=== PATIENT | female | born 1985 | race Caucasian/White ===

== ENCOUNTER → 2017-10-05 | Outpatient (CLI) | payer SELFPAY ==
--- NOTE | 2017-10-05 14:42 | RADIOLOGY REPORT (SQ) ---
EXAM DESCRIPTION: U/S [id number] TRNABD 1GES W/ODOP COMPLETED DATE/TIME: 10/05/2017 1:15 pm REASON FOR STUDY: ENCOUNTER FOR SUPERVISION OF OTHER NORMAL , FIRST TRIMESTER Z34.81 ENCOU NTER FOR SUPRVSN OF NORMAL , FIRST TRIM COMPARISON: No previous this TECHNIQUE: Transabdominal static and realtime grayscale images acquired of the pelvis. Additional se lected spectral and color Doppler images recorded. All images stored on PACs. bHCG: None available LIMITATIONS: None. FINDINGS: FETUS: Living intrauterine . EGA: 11 weeks 0 days COLUMBA: 04/26/2018 FHR: 173 beats per minute. SUBCHORIONIC BLEED: Yes SIZE OF BLEED: 1.5 x 0.8 cm in size UTERUS: No masses. No anomalies. Uterus is 10.3 x 8.6 x 7.7 cm in size CERVICAL LENGTH: 2.5 cm. Closed. RIGHT ADNEXA: Normal ovary with normal vascular flow. Right ovary 2.1 x 1.7 x 1.4 cm No adnexal free fluid. No adnexal masses. LEFT ADNEXA: Normal ovary with normal vascular flow. Left ovary 1.8 x 1.5 x 1.5 cm No adnexal free fluid. No adnexal masses. FREE FLUID: None. OTHER: No other significant finding. IMPRESSION: LIVING INTRAUTERINE . EGA 11 weeks 0 days. Small subchorionic hemorrhage Trimester of : First - 0 to 13 weeks. TECHNICAL DOCUMENTATION: JOB ID: [id number] [employer]- All Rights Reserved
== END ==
LOC: RAD 12:45
PROVIDERS: ATTEND Nurse Practitioner Women's Health
DX: Z34.81 Encounter for supervision of other normal pregnancy, first trimester (principal)
CPT/HCPCS: 76801

== ENCOUNTER 2017-10-20 20:33 | Emergency (ER) | payer SELFPAY ==
[2017-10-20 20:49] VITALS: BP 108/64
[2017-10-20] MEDS ORDERED: NORMAL SALINE 1000 ML 1,000 ML IV ONE ×2 (22:13→23:54)
--- NOTE | 2017-10-20 22:14 | ER Document Report ---
ED Medical Screen (RME) - General Chief Complaint: Nausea Stated Complaint: FEELING NAUSEATED Time Seen by Provider: 10/20/17 22:12 Mode of Arrival: Medic Information source: Patient Notes: 32-year-old female presents to ED for complaint of nausea and vomiting 1 and half weeks. She states she is 13 weeks 12 para 7. She states she saw her last week and they told her for nausea and vomiting got any worse to come to the emergency room. She states she got Zofran in the EMS and has not had any vomiting since the Zofran. Patient is alert and oriented no acute distress at this time. There are many TRAVEL OUTSIDE OF THE [place] IN LAST 30 DAYS: No - Related Data Allergies/Adverse Reactions: codeine [Codeine] Allergy (Severe, Verified 07/17/16 15:46) Hives Penicillins Allergy (Severe, Verified 07/17/16 15:46) Throat closes, swelling Past Medical History - Past Medical History Cardiac Medical History: Reports: Hx Hypertension - No meds now Denies: Hx Coronary Artery Disease, Hx Heart Attack Pulmonary Medical History: Denies: Hx Asthma, Hx Bronchitis, Hx COPD, Hx Pneumonia Neurological Medical History: Denies: Hx Cerebrovascular Accident, Hx Seizures Renal/ Medical History: Reports: Hx Kidney Stones. Denies: Hx Peritoneal Dialysis Musculoskeltal Medical History: Denies Hx Arthritis - Immunizations Immunizations up to date: Yes Hx Diphtheria, Pertussis, Tetanus Vaccination: Yes Physical Exam - Vital signs Vitals: Temp Pulse Resp BP Pulse Ox 98.6 F 74 18 108/64 98 10/20/17 20:47 10/20/17 20:47 10/20/17 20:47 10/20/17 20:47 10/20/17 20:47 Course - Vital Signs Vital signs: Temp Pulse Resp BP Pulse Ox 98.6 F 74 18 108/64 98 10/20/17 20:47 10/20/17 20:47 10/20/17 20:47 10/20/17 20:47 10/20/17 20:47
[2017-10-20 22:41] LABS: ABSOLUTE BASOPHILS # (AUTO) 0.1 10^3/uL (0.0-0.2); ABSOLUTE EOSINOPHILS # (AUTO) 0.1 10^3/uL (0.0-0.6); ABSOLUTE LYMPHOCYTES (AUTO) 1.8 10^3/uL (0.5-4.7); ABSOLUTE MONOCYTES (AUTO) 0.6 10^3/uL (0.1-1.4); ABSOLUTE NEUT (AUTO) 8.6 10^3/uL (1.7-8.2); BASOPHILS % (AUTO) 0.9 % (0-2); EOSINOPHILS % (AUTO) 0.5 % (0-6); HEMATOCRIT 40.5 % (36.0-47.0); HEMOGLOBIN 13.9 g/dL (12.0-15.5); LYMPHOCYTES % (AUTO) 15.8 % (13-45); MEAN CORPUSCULAR HEMOGLOBIN 30.5 pg (27.0-33.4); MEAN CORPUSCULAR HGB CONC 34.4 g/dL (32.0-36.0); MEAN CORPUSCULAR VOLUME 89 fl (80-97); MONOCYTES % (AUTO) 5.6 % (3-13); PLATELET COUNT 275 10^3/uL (150-450); RED BLOOD COUNT 4.56 10^6/uL (3.72-5.28); RED CELL DISTRIBUTION WIDTH 14.9 % (11.5-14.0); SEGMENTED NEUTROPHILS % (AUTO) 77.2 % (42-78); TOTAL CELLS COUNTED % (AUTO) 100 %; WHITE BLOOD COUNT 11.1 10^3/uL (4.0-10.5)
[2017-10-20 22:57] LABS: APPEARANCE,URINE CLOUDY; BILIRUBIN,URINE SMALL (NEGATIVE); COLOR,URINE AMBER; GLUCOSE, URINE NEGATIVE (NEGATIVE); KETONES,URINE 20 mg/dL (NEGATIVE); LEUKOCYTE ESTERASE,URINE MODERATE (NEGATIVE); NITRITE,URINE NEGATIVE (NEGATIVE); PROTEIN,URINE 100 mg/dL (NEGATIVE); URINE SPECIFIC GRAVITY 1.028
[2017-10-20 23:09] LABS: ALBUMIN 4.1 g/dL (3.5-5.0); ALKALINE PHOSPHATASE 53 U/L (38-126); ANION GAP 12 (5-19); ASPARTATE AMINO TRANSFERASE 12 U/L (14-36); BILIRUBIN,DIRECT 0.1 mg/dL (0.0-0.4); BILIRUBIN,TOTAL 0.4 mg/dL (0.2-1.3); BLOOD UREA NITROGEN 7 mg/dL (7-20); CALCIUM 9.7 mg/dL (8.4-10.2); CARBON DIOXIDE 25 mmol/L (22-30); CHLORIDE 102 mmol/L (98-107); GLUCOSE 92 mg/dL (75-110); SODIUM 139.1 mmol/L (137-145); TOTAL PROTEIN 6.6 g/dL (6.3-8.2)
[2017-10-20 23:16] LABS: ALANINE AMINOTRANSFERASE 14 U/L (9-52); POTASSIUM 3.7 mmol/L (3.6-5.0)
[2017-10-21] MEDS ORDERED: NITROFURANTOIN MONOHYD/M-CRYST 100 MG CAPSULE PO ONE (01:07)
[2017-10-21] MEDS ORDERED: ONDANSETRON ODT 4 MG TAB (6 TAB/ER DISP) PO PRN (01:07)
--- NOTE | 2017-10-21 01:11 | ER Document Report ---
ED General - General Chief Complaint: Nausea Stated Complaint: FEELING NAUSEATED Time Seen by Provider: 10/20/17 22:12 Mode of Arrival: Medic Notes: Patient is a 32-year-old female who is G 12 P7 who presents with complaint that she is having some cramping with her . She is approximately 13 weeks . She also has had some nausea and vomiting. She says that she has a little bit of mild vaginal bleeding but says she has this throughout all her pregnancies because of a history of hemophilia. She is followed by the OB at [facility]. Her recent ultrasound that showed normal IUP without worrisome complications. She was recently placed on Flagyl for bacterial vaginosis. Since starting Flagyl she has had recurrent vomiting. No other complaints at this time. TRAVEL OUTSIDE OF THE [place] IN LAST 30 DAYS: No - Related Data Allergies/Adverse Reactions: codeine [Codeine] Allergy (Severe, Verified 07/17/16 15:46) Hives Penicillins Allergy (Severe, Verified 07/17/16 15:46) Throat closes, swelling Past Medical History - General Information source: Patient - Social History Smoking Status: Current Every Day Smoker Frequency of alcohol use: None Drug Abuse: None Family History: Reviewed & Not Pertinent Patient has suicidal ideation: No Patient has homicidal ideation: No - Past Medical History Cardiac Medical History: Reports: Hx Hypertension - No meds now Denies: Hx Coronary Artery Disease, Hx Heart Attack Pulmonary Medical History: Denies: Hx Asthma, Hx Bronchitis, Hx COPD, Hx Pneumonia Neurological Medical History: Denies: Hx Cerebrovascular Accident, Hx Seizures Renal/ Medical History: Reports: Hx Kidney Stones. Denies: Hx Peritoneal Dialysis Musculoskeltal Medical History: Denies Hx Arthritis - Immunizations Immunizations up to date: Yes Hx Diphtheria, Pertussis, Tetanus Vaccination: Yes Review of Systems - Review of Systems Notes: My Normal Review Basic REVIEW OF SYSTEMS: CONSTITUTIONAL : Denies fever, chills, or sweats. Denies recent illness. EENT: Denies eye, ear, throat, or mouth pain or symptoms. Denies nasal or sinus congestion. RESPIRATORY: Denies cough, cold, or chest congestion. Denies shortness of breath, difficulty breathing, or wheezing. GASTROINTESTINAL: Denies abdominal pain. vomiting GENITOURINARY: Denies difficulty urinating, painful urination, burning, frequency, or blood in urine. FEMALE GENITOURINARY: Chronic vaginal spotting. LMP: MUSCULOSKELETAL: Denies neck or back pain or joint pain or swelling. SKIN: Denies rash or skin lesions. HEMATOLOGIC : History of hemophilia NEUROLOGICAL: Denies altered mental status or loss of consciousness. Denies headache. Denies weakness or paralysis or loss of use of either side. Denies problems with gait or speech. Denies sensory or motor loss. ALL OTHER SYSTEMS REVIEWED AND NEGATIVE. Physical Exam - Vital signs Vitals: Temp Pulse Resp BP Pulse Ox 98.6 F 74 18 108/64 98 10/20/17 20:47 10/20/17 20:47 10/20/17 20:47 10/20/17 20:47 10/20/17 20:47 - Notes Notes: General Appearance: Well nourished, alert, cooperative, no acute distress, no obvious discomfort. Well-appearing. Vitals: reviewed, See vital signs table. Head: no swelling or tenderness to the head Eyes: PERRL, EOMI, Conjuctiva clear Mouth: No decreasd moisture Lungs: No wheezing, No rales, No rhonci, No accessory muscle use, good air exchange bilaterally. Heart: Normal rate, Regular rythm, No murmur, no rub Abdomen: Normal BS, soft, No rigidity, No reproducible abdominal tenderness to palpation, No guarding, no rebound, no abdominal masses, no organomegaly Extremities: strength 5/5 in all extremities, good pulses in all extremities, no swelling or tenderness in the extremities, no edema. Skin: warm, dry, appropriate color, no rash Neuro: speech clear, oriented x 3, normal affect, responds appropriately to questions. Course - Re-evaluation Re-evalutation: 10/21/17 23:08 I suspect most likely patient's vomiting is related to the Flagyl being that the start with Flagyl. She is responded well to Zofran and feels much improved. She also has a little bit of a urinary tract infection. Will place her Macrobid and sent her urine for culture. I will discharge her home with Zofran. I encouraged her follow-up closely with her PROJECT MANAGEMENT PROFESSIONAL doctor for reevaluation. I encouraged her return to ER immediately if she has heavy vaginal bleeding, pain, fevers, or intractable vomiting. Patient agrees with plan and will be discharged home. Dictation of this chart was performed using voice recognition software; therefore, there may be some unintended grammatical errors. 10/21/17 23:09 - Vital Signs Vital signs: Temp Pulse Resp BP Pulse Ox 98.6 F 74 18 108/64 98 10/20/17 20:47 10/20/17 20:47 10/20/17 20:47 10/20/17 20:47 10/20/17 20:47 - Laboratory Result Diagrams: 10/20/17 22:31 10/20/17 22:31 Laboratory results interpreted by me: 10/20/17 10/20/17 10/20/17 22:31 22:31 22:31 WBC 11.1 H RDW 14.9 H Absolute Neutrophils 8.6 H AST 12 L Beta HCG, Quant 27571.00 H Urine Protein 100 H Urine Ketones 20 H Urine Bilirubin SMALL H Urine Urobilinogen 2.0 H Ur Leukocyte Esterase MODERATE H Discharge - Discharge Clinical Impression: UTI (urinary tract infection) Qualifiers: Urinary tract infection type: site unspecified Hematuria presence: without hematuria Qualified Code(s): N39.0 - Urinary tract infection, site not specified Vomiting Qualifiers: Vomiting type: unspecified Vomiting Intractability: unspecified Nausea presence : with nausea Qualified Code(s): R11.2 - Nausea with vomiting, unspecified Qualifiers: Weeks of gestation: unspecified Qualified Code(s): Z34.90 - Encounter for supervision of normal , unspecified, unspecified trimester Condition: Good Disposition: HOME, SELF-CARE Additional Instructions: Please take the antibiotics as prescribed. Please return to the ER immediately if you develop recurrent vomiting, fevers, worsening abdominal pain, or heavy vaginal bleeding. Please follow up closely with your OB doctor this week. Prescriptions: Nitrofurantoin/Nitrofuran Mac [Macrobid 100 mg Capsule] 1 tab PO BID #20 capsule Ondansetron [Zofran Odt 4 mg Tablet] 1 tab PO Q4H PRN #15 tab.rapdis PRN Reason: For Nausea/Vomiting
== END 2017-10-21 01:37 | disposition home or self-care (01) ==
LOC: ER 20:33
DX: O23.91 Unspecified genitourinary tract infection in pregnancy, first trimester (principal); O21.9 Vomiting of pregnancy, unspecified; O99.331 Smoking (tobacco) complicating pregnancy, first trimester; Z3A.13 13 weeks gestation of pregnancy; Z88.6 Allergy status to analgesic agent; Z88.0 Allergy status to penicillin
CPT/HCPCS: 99283; 96360; 96361; 36415; 87086; 84702; 85025; 80053; 81001; J7030 ×2; J8499

== ENCOUNTER → 2017-11-16 | Outpatient (CLI) | payer SELFPAY ==
--- NOTE | 2017-11-16 14:38 | RADIOLOGY REPORT (SQ) ---
EXAM DESCRIPTION: U/S OB 14+ TRNABD 1GES W/O DOP COMPLETED DATE/TIME: 11/16/2017 1:51 pm REASON FOR STUDY: ENCOUNTER FOR SUPERVISION OF OTHER NORMAL , SECOND TRIMESTER Z34.82 ENCO UNTER FOR SUPRVSN OF NORMAL , SECOND TRI COMPARISON: 10/05/2017 TECHNIQUE: Static and Dynamic grayscale imaging performed of gravid uterus using transabdominal appr oach. Additional selected color Doppler and spectral images recorded. All stored on PACS. LIMITATIONS: None. FINDINGS: EGA: 16 weeks 5 days COLUMBA: 04/28/2018 EFW: 166+/- 25 grams PERCENTILE: Not applicable. Fetus less than or equal to 20 weeks gestation. LEONARDO: 4.2 cm PLACENTA: Posterior. GRADE: I PRESENTATION: Variable ANATOMY: HEART RATE: 145 beats per minute. FOUR CHAMBER HEART: Not well seen because of movement. THREE VESSEL CORD: Yes. CORD INSERTION: Visualized. KIDNEYS AND BLADDER: Visualized. Appear normal. STOMACH: Visualized. Appears normal. SPINE: Normal as visualized. BRAIN AND LATERAL VENTRICLES: Visualized. Appear normal. OTHER: Extremities appear normal. MATERNAL ADNEXA: Maternal ovaries not visualized. CERVICAL LENGTH: 3.9 centimeters. Closed. OTHER: No other significant finding. IMPRESSION: LIVING INTRAUTERINE . ESTIMATED GESTATIONAL AGE 16 weeks 5 days. NO VISUALIZED ANOMALIES. Trimester of : Second trimester - 13 weeks 1 day to 27 weeks 6 days. TECHNICAL DOCUMENTATION: JOB ID: [id number] [email or web address] All Rights Reserved Reading location - IP/workstation name: [email or web address]
== END ==
LOC: RAD 13:03
PROVIDERS: ATTEND Nurse Practitioner Women's Health
DX: Z34.82 Encounter for supervision of other normal pregnancy, second trimester (principal)
CPT/HCPCS: 76805

== ENCOUNTER 2018-01-02 22:49 | Emergency (ER) | payer MEDICAID ==
[2018-01-02] MEDS ORDERED: ONDANSETRON HCL INJ/PF 4 MG/2 ML SDV IV ONE (23:36)
--- NOTE | 2018-01-02 23:36 | ER Document Report ---
ED Medical Screen (RME) - General Chief Complaint: Vomiting Stated Complaint: VOMITING Time Seen by Provider: 01/02/18 23:26 Notes: Patient is a G 11 P73 who presents emergency department with a chief complaint of epigastric pain, vomiting and hematochezia. states that she is queasy all day which she started throwing up around 9 PM. Admits to bright red blood as well as dark coffee-ground emesis. She admits to epigastric discomfort but denies any right upper quadrant pain. She denies any lower abdominal pain. She has had an ultrasound confirming her . 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 IN LAST 30 DAYS: No - Related Data Allergies/Adverse Reactions: codeine [Codeine] Allergy (Severe, Verified 07/17/16 15:46) Hives Penicillins Allergy (Severe, Verified 07/17/16 15:46) Throat closes, swelling Past Medical History - Past Medical History Cardiac Medical History: Reports: Hx Hypertension - No meds now Denies: Hx Coronary Artery Disease, Hx Heart Attack Pulmonary Medical History: Denies: Hx Asthma, Hx Bronchitis, Hx COPD, Hx Pneumonia Neurological Medical History: Denies: Hx Cerebrovascular Accident, Hx Seizures Renal/ Medical History: Reports: Hx Kidney Stones. Denies: Hx Peritoneal Dialysis Musculoskeltal Medical History: Denies Hx Arthritis - Immunizations Immunizations up to date: Yes Hx Diphtheria, Pertussis, Tetanus Vaccination: Yes Physical Exam - Vital signs Vitals: Temp Pulse Resp BP Pulse Ox 98.0 F 101 H 18 117/76 96 01/02/18 23:15 01/02/18 23:15 01/02/18 23:15 01/02/18 23:15 01/02/18 23:15 - Notes Notes: PHYSICAL EXAM GENERAL: Alert, interacts well. HEAD: Normocephalic, atraumatic. EYES: Pupils equal, round, and reactive to light. Extraocular movements intact. ENT: Oral mucosa moist, tongue midline. LUNGS: Clear to auscultation bilaterally, no wheezes, rales, or rhonchi. No respiratory distress. HEART: Regular rate and rhythm. No murmurs, gallops, or rubs. ABDOMEN: Soft, nondistended, nontender. NEUROLOGICAL: Alert and oriented x4. Normal speech. PSYCH: Normal affect, normal mood. Course - Vital Signs Vital signs: Temp Pulse Resp BP Pulse Ox 98.0 F 101 H 18 117/76 96 01/02/18 23:15 01/02/18 23:15 01/02/18 23:15 01/02/18 23:15 01/02/18 23:15
[2018-01-03 01:14] LABS: ABSOLUTE BASOPHILS # (AUTO) 0.1 10^3/uL (0.0-0.2); ABSOLUTE EOSINOPHILS # (AUTO) 0.1 10^3/uL (0.0-0.6); ABSOLUTE LYMPHOCYTES (AUTO) 1.6 10^3/uL (0.5-4.7); ABSOLUTE MONOCYTES (AUTO) 0.6 10^3/uL (0.1-1.4); ABSOLUTE NEUT (AUTO) 9.1 10^3/uL (1.7-8.2); BASOPHILS % (AUTO) 0.7 % (0-2); EOSINOPHILS % (AUTO) 0.8 % (0-6); HEMATOCRIT 36.2 % (36.0-47.0); HEMOGLOBIN 12.4 g/dL (12.0-15.5); LYMPHOCYTES % (AUTO) 13.9 % (13-45); MEAN CORPUSCULAR HEMOGLOBIN 30.7 pg (27.0-33.4); MEAN CORPUSCULAR HGB CONC 34.3 g/dL (32.0-36.0); MEAN CORPUSCULAR VOLUME 89 fl (80-97); MONOCYTES % (AUTO) 5.4 % (3-13); PLATELET COUNT 263 10^3/uL (150-450); RED BLOOD COUNT 4.05 10^6/uL (3.72-5.28); SEGMENTED NEUTROPHILS % (AUTO) 79.2 % (42-78); TOTAL CELLS COUNTED % (AUTO) 100 %; WHITE BLOOD COUNT 11.5 10^3/uL (4.0-10.5)
[2018-01-03] MEDS ORDERED: METOCLOPRAMIDE HCL INJ/PF 10 MG/2 ML SDV IV ONE (01:57)
[2018-01-03] MEDS ORDERED: NORMAL SALINE 1000 ML 1,000 ML IV ONE (01:59)
--- NOTE | 2018-01-03 02:01 | ER Document Report ---
ED GI/ - General Mode of Arrival: Ambulatory Information source: Patient TRAVEL OUTSIDE OF THE [place] IN LAST 30 DAYS: No - HPI Patient complains to provider of: Abdominal pain - cramping, Vomiting Onset: This evening - 2100 Associated symptoms: Other - see notes above <CHIP CRUZ - Last Filed: 01/03/18 03:06> <THIERRY AGUIRRE - Last Filed: 01/03/18 04:45> - General Chief Complaint: Vomiting Stated Complaint: VOMITING Time Seen by Provider: 01/02/18 23:26 Notes: 32 year old female (; 24 weeks ) presents to the ED complaining of vomiting blood, nausea, and abdominal cramping that started at 2100 this evening. At bed side, the patient reports that her nausea is better. Patient states that she is a hemophilia carrier. (CHIP CRUZ) - Related Data Allergies/Adverse Reactions: codeine [Codeine] Allergy (Severe, Verified 07/17/16 15:46) Hives Penicillins Allergy (Severe, Verified 07/17/16 15:46) Throat closes, swelling Past Medical History - General Information source: Patient - Social History Smoking Status: Unknown if Ever Smoked Family History: Reviewed & Not Pertinent Patient has suicidal ideation: No Patient has homicidal ideation: No - Past Medical History Cardiac Medical History: Reports: Hx Hypertension - No meds now Denies: Hx Coronary Artery Disease, Hx Heart Attack Pulmonary Medical History: Denies: Hx Asthma, Hx Bronchitis, Hx COPD, Hx Pneumonia Neurological Medical History: Denies: Hx Cerebrovascular Accident, Hx Seizures Renal/ Medical History: Reports: Hx Kidney Stones. Denies: Hx Peritoneal Dialysis Musculoskeltal Medical History: Denies Hx Arthritis - Immunizations Immunizations up to date: Yes Hx Diphtheria, Pertussis, Tetanus Vaccination: Yes <CHIP CRUZ - Last Filed: 01/03/18 03:06> Review of Systems - Review of Systems Constitutional: No symptoms reported EENT: No symptoms reported Cardiovascular: No symptoms reported Respiratory: No symptoms reported Gastrointestinal: See HPI, Abdominal pain - cramping, Nausea, Vomiting, Blood in vomit Genitourinary: No symptoms reported Female Genitourinary: See HPI, - 24 weeks Musculoskeletal: No symptoms reported Skin: No symptoms reported Hematologic/Lymphatic: No symptoms reported Neurological/Psychological: No symptoms reported -: Yes All other systems reviewed and negative <CHIP CRUZ - Last Filed: 01/03/18 03:06> Physical Exam - General General appearance: Alert In distress: None - HEENT Head: Normocephalic, Atraumatic Eyes: Normal Extraocular movements intact: Yes Pupils: PERRL Mucous membranes: Dry - Respiratory Respiratory status: No respiratory distress Breath sounds: Normal - Cardiovascular Rhythm: Regular Heart sounds: Normal auscultation - Abdominal Inspection: Gravid female Tenderness: Tender - epigastric tenderness to palpation - Extremities General upper extremity: Normal inspection General lower extremity: Normal inspection - Neurological Neuro grossly intact: Yes - Psychological Associated symptoms: Normal affect, Normal mood - Skin Skin Temperature: Warm Skin Moisture: Dry Skin Color: Normal <CHIP CRUZ - Last Filed: 01/03/18 03:06> - Vital signs Vitals: Temp Pulse Resp BP Pulse Ox 98.0 F 101 H 18 117/76 96 01/02/18 23:15 01/02/18 23:15 01/02/18 23:15 01/02/18 23:15 01/02/18 23:15 Course - Laboratory Result Diagrams: 01/03/18 01:00 01/03/18 02:34 <NANCYCHIP - Last Filed: 01/03/18 03:06> - Laboratory Result Diagrams: 01/03/18 01:00 01/03/18 02:34 <THIERRY AGUIRRE - Last Filed: 01/03/18 04:45> - Re-evaluation Re-evalutation: 01/03/18 01:44 Patient is improving with fluids. Awaiting blood work. heart tones 140s. 01/03/18 04:00 Patient with no acute findings on blood work. No further vomiting. Taking p.o. without difficulty. Due to the patient being 24 weeks, she will be sent to labor and delivery for labor check. Patient is agreeable to this plan. No abdominal pain or cramping at this time. No evidence for surgical emergency. Patient is instructed to follow-up with her SEISMOMETER OPERATOR regarding what sounds like reflux and nausea vomiting in . Understands and agrees with plan. Grateful for care. Of note, urine culture has been sent. (THIERRY AGUIRRE) - Vital Signs Vital signs: Temp Pulse Resp BP Pulse Ox 98.0 F 101 H 19 99/68 L 96 01/02/18 23:15 01/02/18 23:15 01/03/18 04:01 01/03/18 04:01 01/03/18 04:01 - Laboratory Laboratory results interpreted by me: 01/03/18 01/03/18 01/03/18 01:00 02:00 02:34 WBC 11.5 H Seg Neutrophils % 79.2 H Absolute Neutrophils 9.1 H Potassium 3.5 L Chloride 110 H Calcium 8.3 L Total Protein 6.0 L Albumin 3.0 L Urine Protein 30 H Urine Ketones TRACE H Urine Urobilinogen 2.0 H Ur Leukocyte Esterase TRACE H Discharge <CHIP CRUZ - Last Filed: 01/03/18 03:06> <THIERRY AGUIRRE - Last Filed: 01/03/18 04:45> - Discharge Clinical Impression: Hypokalemia Vomiting Qualifiers: Vomiting type: unspecified Vomiting Intractability: unspecified Nausea presence : with nausea Qualified Code(s): R11.2 - Nausea with vomiting, unspecified Qualifiers: Weeks of gestation: 24 weeks Qualified Code(s): Z3A.24 - 24 weeks gestation of Condition: Stable Disposition: LABOR CHECK Instructions: Dehydration ([facility]), Vomiting ([facility]) Additional Instructions: Please go directly to labor and delivery. Please take nausea medication as needed. Return if you have any worsening or concerning symptoms. Prescriptions: Metoclopramide HCl [Reglan 10 mg Tablet] 1 tab PO ASDIR PRN #25 tablet PRN Reason: Referrals: BELÉN CHISHOLM MD [Primary Care Provider] - Follow up in 3-5 days Scribe Attestation: 01/03/18 04:45 I personally performed the services described in the documentation, reviewed and edited the documentation which was dictated to the scribe in my presence, and it accurately records my words and actions. (THIERRY AGUIRRE) Scribe Documentation - Scribe Written by Scribe:: Eloy Mcgowan, 01/03/2018 [id number] acting as scribe for :: Warren <CHIP CRUZ - Last Filed: 01/03/18 03:06>
[2018-01-03 02:56] LABS: APPEARANCE,URINE SLIGHTLY-CLOUDY; BILIRUBIN,URINE NEGATIVE (NEGATIVE); COLOR,URINE AMBER; GLUCOSE, URINE NEGATIVE (NEGATIVE); KETONES,URINE TRACE mg/dL (NEGATIVE); LEUKOCYTE ESTERASE,URINE TRACE (NEGATIVE); NITRITE,URINE NEGATIVE (NEGATIVE); PROTEIN,URINE 30 mg/dL (NEGATIVE); URINE SPECIFIC GRAVITY 1.025
[2018-01-03 03:01] LABS: ALANINE AMINOTRANSFERASE 12 U/L (9-52); ALKALINE PHOSPHATASE 52 U/L (38-126); ANION GAP 9 (5-19); ASPARTATE AMINO TRANSFERASE 23 U/L (14-36); BILIRUBIN,DIRECT 0.3 mg/dL (0.0-0.4); BILIRUBIN,TOTAL 0.3 mg/dL (0.2-1.3); BLOOD UREA NITROGEN 7 mg/dL (7-20); CALCIUM 8.3 mg/dL (8.4-10.2); CARBON DIOXIDE 23 mmol/L (22-30); CHLORIDE 110 mmol/L (98-107); GLUCOSE 98 mg/dL (75-110); LIPASE 111.4 U/L (23-300); POTASSIUM 3.5 mmol/L (3.6-5.0); SODIUM 142.4 mmol/L (137-145)
[2018-01-03] MEDS ORDERED: POTASSIUM CHLORIDE 10 MEQ TABLET.SA PO ONE (03:52)
[2018-01-03 04:27] VITALS: BP 99/68
== END 2018-01-03 04:53 | disposition admitted as inpatient to this hospital (09) ==
LOC: ER 22:49
DX: O99.612 Diseases of the digestive system complicating pregnancy, second trimester (principal); K92.0 Hematemesis; O99.282 Endocrine, nutritional and metabolic diseases complicating pregnancy, second trimester; E87.6 Hypokalemia; O26.892 Other specified pregnancy related conditions, second trimester; R10.9 Unspecified abdominal pain; O16.2 Unspecified maternal hypertension, second trimester; Z3A.24 24 weeks gestation of pregnancy; Z88.5 Allergy status to narcotic agent; Z88.0 Allergy status to penicillin
CPT/HCPCS: 99284; 96361; 96374; 86900; 86901; 36415; 87086; 86850; 83690; 85025; 87088; 80053; 81001; J2765; J7030

== ENCOUNTER → 2018-01-02 | Outpatient (CLI) | payer MEDICAID | LOC: RAD 22:29 | PROVIDERS: ATTEND Nurse Practitioner Women's Health | DX: Z53.9 Procedure and treatment not carried out, unspecified reason (principal) ==

== ENCOUNTER 2018-01-03 04:50 | Outpatient (CLI) | payer MEDICAID | END 2018-01-03 05:56 | disposition home or self-care (01) | LOC: LC 04:50 | PROVIDERS: ATTEND Obstetrics & Gynecology Gynecology | PROC: 4A1HXCZ Monitoring of Products of Conception, Cardiac Rate, External Approach (ICD-10-PCS; principal; 2018-01-03) | DX: O99.612 Diseases of the digestive system complicating pregnancy, second trimester (principal); K92.0 Hematemesis; O26.892 Other specified pregnancy related conditions, second trimester; R10.13 Epigastric pain; O99.112 Other diseases of the blood and blood-forming organs and certain disorders involving the immune mechanism complicating pregnancy, second trimester; D67 Hereditary factor IX deficiency; Z3A.24 24 weeks gestation of pregnancy ==